=== PATIENT | female | born 1970 | race Caucasian/White ===

== ENCOUNTER 2018-09-09 13:53 | Emergency (ER) | payer BC ==
[~2018-09-09] VITALS: Ht 165.1 cm; Wt 59.0 kg
--- NOTE | 2018-09-09 14:44 | NUR ---
Patient discharged to home in stable conditon. Written and verbal after care instructions given. Patient verbalizes understanding of instructions.PT WALKS IN STEADY GAIT.
== END 2018-09-09 14:45 | disposition home or self-care (01) ==
LOC: ER 13:53
DX: S92.514A Nondisplaced fracture of proximal phalanx of right lesser toe(s), initial encounter for closed fracture (principal); X58.XXXA Exposure to other specified factors, initial encounter; Y93.89 Activity, other specified; Y92.89 Other specified places as the place of occurrence of the external cause; Y99.8 Other external cause status
CPT/HCPCS: 73630; A4663